=== PATIENT | female | born 1945 | race Caucasian/White ===

== ENCOUNTER → 2020-09-30 | Outpatient (CLI) | payer MEDICARE, OTHER ==
[~2020-09-30] MED LIST: CRESTOR20 MG PO; ECOTRIN81 MG PO; FLUZONE QU60 MCG/013 IM; KLONOPIN0.5 MG PO; LOPRESSOR 25 MG25 MG PO; MICROZIDE12.5 MG PO; NEURONTIN 300300 MG PO; NORCO 10-325 T1 EACH PO; NORCO 7.5-3251 EACH PO; NOVOLOG FL100 UNIT/1 SQ; PRINIVIL20 MG PO; SEROQUEL100 MG PO; SINGULAIR10 MG PO; SYMBICORT 16010.2 GM INH; TRESIBA FL100 UNIT/1 SQ; VENTOLIN HFA 66.7 GM INH
== END ==
LOC: HEART CORB 09-14 10:30
DX: I20.9 Angina pectoris, unspecified (principal); I25.10 Atherosclerotic heart disease of native coronary artery without angina pectoris; I50.32 Chronic diastolic (congestive) heart failure; R06.02 Shortness of breath; I34.0 Nonrheumatic mitral (valve) insufficiency; I07.1 Rheumatic tricuspid insufficiency
CPT/HCPCS: 78452; 93306; A9502; J2785

== ENCOUNTER → 2021-12-27 | Outpatient (CLI) | payer BC, OTHER | LOC: KOH-I 12-24 09:00 | DX: S92.141A Displaced dome fracture of right talus, initial encounter for closed fracture (principal); S92.021A Displaced fracture of anterior process of right calcaneus, initial encounter for closed fracture | CPT/HCPCS: 73700 ==

== ENCOUNTER → 2022-01-17 | Outpatient (CLI) | payer BC, OTHER | LOC: KOH-I 13:33 | DX: S92.901A Unspecified fracture of right foot, initial encounter for closed fracture (principal) | CPT/HCPCS: 73630 ==

== ENCOUNTER → 2022-03-07 | Outpatient (CLI) | payer BC, OTHER | LOC: KOH-I 14:08 | DX: S92.901A Unspecified fracture of right foot, initial encounter for closed fracture (principal); X58.XXXA Exposure to other specified factors, initial encounter; M19.071 Primary osteoarthritis, right ankle and foot | CPT/HCPCS: 73630 ==